=== PATIENT | male | born 1960 | race Caucasian/White ===

== ENCOUNTER 2024-01-20 13:48 | Emergency (ER) | payer BC, SELFPAY ==
[2024-01-20 13:51] VITALS: BP 163/83
[2024-01-20 14:45] VITALS: BMI 28.3
[2024-01-20 14:58] LABS: Urine Albumin Negative (Neg - Trace); Urine Bilirubin Negative (Negative); Urine Character Clear (Clear); Urine Color Yellow; Urine Glucose 3+ (Negative); Urine Ketone Trace (Negative); Urine Leukocyte Negative (Negative); Urine Nitrite Negative (Negative); Urine Occult Blood 4+ (Negative); Urine Specific Gravity 1.025 (<1.030); Urine Urobilinogen Negative (Neg - 1+)
[2024-01-20 15:01] LABS: % Basophils 0.6 % (0-2); % Immature Granulocytes 0.4 % (0-0.5); % Lymphocytes 13.8 % (20.5-51.1); % Monocytes 5.8 % (1.7-9.3); % Neutrophils 77.4 % (42.2-75.2); Absolute Basophils 0.1 10^3/uL (0-0.2); Absolute Eosinophils 0.2 10^3/uL (0-0.7); Absolute Lymphocytes 1.3 10^3/uL (1.2-3.4); Absolute Monocytes 0.6 10^3/uL (0.1-0.6); Absolute Neutrophils 7.5 10^3/uL (1.4-6.5); Hematocrit 40.6 % (39.0-52.0); Hemoglobin 15.1 g/dL (13.0-18.0); Mean Corp Hgb Conc. 37.2 g/dL (33.0-37.0); Mean Corpuscular Hgb 32.8 pg (27.0-31.0); Mean Corpuscular Volume 88.1 fL (80.0-94.0); Mean Platelet Volume 9.2 fL (7.4-10.4); Nucleated Red Blood Cells % 0 % (-); Platelet Count 199 10^3/uL (130-400); Red Blood Cell Count 4.61 10^6/uL (4.70-6.10); Red Cell Dist. Width 12.1 % (11.5-14.5); White Blood Cell Count 9.6 10^3/uL (4.8-10.8)
[2024-01-20 15:11] LABS: ALT (SGPT) 24 U/L (0-50); AST (SGOT) 27 U/L (17-59); Albumin 4.2 g/dl (3.5-5.0); Alkaline Phosphatase 59 U/L (38-126); Blood Urea Nitrogen 22 mg/dl (9-20); Calcium 9.4 mg/dl (8.4-10.2); Carbon Dioxide 25 mmol/L (22-30); Chloride 103 mmol/L (98-107); Estimated Creatinine Clearance 86 ml/min; Glucose 236 mg/dl (70-99); Potassium 4.3 mmol/L (3.5-5.1); Sodium 136 mmol/L (135-145); Total Bilirubin 0.8 mg/dl (0.2-1.3); eGFR > 60.00
[2024-01-20 15:16] LABS: Urine Mucus Few
[2024-01-20 15:17] LABS: Urine Bacteria Few (Negative); Urine Squamous Cell 0-2 /LPF (Few)
[2024-01-20 15:18] LABS: Urine Red Blood Cell 30-40 /HPF (0-2); Urine White Cell 0-2 /HPF (0-5)
[2024-01-20 18:15] VITALS: BP 145/80
--- NOTE | 2024-01-20 18:29 | ED.GENMED ---
History of Present Illness
General
Chief Complaint: Flank Pain
Source: patient
Exam Limitations: none
Time Seen by Provider: 01/20/24 14:09
Nursing documentation reviewed up to this point in time: agreed with
Travel History
Have you had any contact with someone who has COVID-19?: No
Do you have any symptoms of coronavirus? Fever > 100 degrees, chills, cough, shortness of breath, sore throat, loss of taste or smell, muscle aches, or headache?: No
History of Present Illness
History of Present Illness:
63-year-old male with past medical history of NIDDM presenting to the emergency department today with concerns left-sided flank discomfort intermittently over the past 3 days no associated urinary symptoms no nausea vomiting no fevers feels similar
to previous episode of kidney stones.
Past History
Past History
ED Past Medical History: NIDDM
ED Past Surgical History: None
Social History
Tobacco: Non-smoker
Alcohol: None
Drug: None
Personal:
Living: with family
Employment: Employed
Review of Systems
Review of Systems
Allergies reviewed?: Yes
All Other Systems: ROS reviewed and negative except as documented in HPI and ROS
Phy Exam
Physical Exam
Physical Exam:
GENERAL: Alert , in no apparent distress
EYE: pupils equal and reactive
NECK: Supple, no significant adenopathy.
ENT: o/p clr, mmm.
CARDIAC: Regular rate and rhythm .
LUNGS: Clear breath sounds bilaterally, no acute respiratory distress, no wheezes/rales/rhonchi
ABDOMEN: No CVA tenderness soft, without focal tenderness, no r/g, no cvat
NEUROLOGICAL: Alert and oriented, no focal neuro deficits
SKIN: Warm and dry, skin intact.
MUSCULOSKELETAL: No edema, well perfused.
PSYCH: Normal and appropriate interaction.
Course
Orders/Labs/Results
Orders:
Orders
01/20/24 14:48
Complete Blood Count/With Diff Urgent
Comprehensive Metabolic Panel Urgent
Urinalysis Reflex To Culture Urgent
Date Specimen was Collected: 01/20/24
Time Specimen was Collected: 14:40
Urine Microscopic Reflex Cult Urgent
01/20/24 16:02
CT Abd/pel Without Iv Or Oral Urgent
Comment:
Reason For Exam: l flank pain
Abnormal Lab Results
01/20/24
14:48
RBC 4.61 L 10^6/uL
(4.70-6.10)
MCH 32.8 H pg
(27.0-31.0)
MCHC 37.2 H g/dL
(33.0-37.0)
Absolute Neuts (auto) 7.5 H 10^3/uL
(1.4-6.5)
Neutrophils % 77.4 H %
(42.2-75.2)
Lymphocytes % 13.8 L %
(20.5-51.1)
BUN 22 H mg/dl
(9-20)
Glucose 236 H mg/dl
(70-99)
Urine Ketones Trace A
(Negative)
Ur Occult Blood Reflex 4+ A
(Negative)
Urine RBC 30-40 A /HPF
(0-2)
Urine Bacteria (Reflex) Few A
(Negative)
Urine Glucose 3+ A
(Negative)
01/20/24 14:48
01/20/24 14:48
Vital Signs
Initial and Last Documented VS:
Initial Vital Signs
Temp Pulse Resp BP Pulse Ox
97.7 F 64 18 163/83 98
01/20/24 13:51 01/20/24 13:51 01/20/24 13:51 01/20/24 13:51 01/20/24 13:51
Last Documented Vital Signs
Temp Pulse Resp BP Pulse Ox
97.7 F 60 18 145/80 99
01/20/24 13:51 01/20/24 18:15 01/20/24 18:15 01/20/24 18:15 01/20/24 18:15
MDM/Problems Addressed
MDM/Problems Addressed:
63-year-old male presenting to the emergency department today with concerns of left leg pain intermittently over the past few days. Feels similar to previous kidney stones. Upon arrival blood pressure elevated but otherwise vital signs are normal
afebrile no white count normal renal function sugar slightly elevated patient was made aware otherwise urine showing blood but no signs of infection. CT scan obtained showing a 4 mm stone consistent with patient's symptoms. Plan for outpatient
treatment and close urology follow-up. Return precautions given.
*Critical Care Note
Total Time (30-74mins, 75-104mins- exclusive of procedures): Not Applicable
ED Attending Note
-
Portions of this chart may have been created with voice recognition software.� Occasional wrong word or��sound alike� substitutions may have occurred due to the inherent limitations of voice recognition software.
Discharge Plan
Departure
Patient Disposition: Home (Routine Discharge)
Date of Disposition: 01/20/24
Time of Disposition: 18:31
Patient with high blood pressure during this ER visit?: No
Condition: Good
Covid-19: Not Applicable
Discharge Problem:
Kidney stone
Instructions: Kidney Stones (DC), How to Strain Your Urine
Prescriptions:
New
tamsulosin [Flomax] 0.4 mg capsule
0.4 mg PO HS Qty: 14 0RF
No Action
metformin 500 MG tablet
500 mg PO BID
pioglitazone 45 MG tablet
45 mg PO DAILY
simvastatin 40 MG tablet
40 mg PO DAILY
multivitamin [Daily Multiple] 1 EACH tablet
1 ea PO DAILY
aspirin 162 MG tablet
162 mg PO DAILY
calcium carbonate [Calcium 500] 500 MG tablet,chewable
500 mg PO DAILY
hydrocodone-acetaminophen [Vicodin] 1 EACH tablet
1 ea PO Q4HPRN PRN (Reason: pain) Qty: 15 0RF
Referrals:
Brian Maravilla MD [Family Provider] -
Baldomero Bone MD [Active] - Follow up in 2-3 days
Activity Restrictions/Additional Instructions:
You came to the emergency department today with concerns of flank pain. You are found to have a 4 mm stone. Please take the flomax once daily. Please stay very hydrated. For discomfort take 600 mg of ibuprofen every 6 hours. Return to the
emergency department any worsening, new or concerning symptoms.
Interventions
Interventions:
*Risk Screen - Suicide Last Done: 01/20/24 14:45
*General Assessment Last Done: 01/20/24 13:51
*Neglect/Abuse Screening Last Done: 01/20/24 14:45
*ED COVID-19 Vaccine History Last Done: 01/20/24 13:51
JB-Qgzwad-Gtjhcqfivl Assessment Last Done: 01/20/24 14:45
ED-Male Genitourinary Assessment Last Done: 01/20/24 14:45
== END 2024-01-20 18:39 | disposition home or self-care (01) ==
LOC: EMR 13:48
PROVIDERS: Emergency Medicine; EMERGENCY PHYSICIAN Emergency Medicine; FAMILY PHYSICIAN Family Medicine
DX: N13.2 Hydronephrosis with renal and ureteral calculous obstruction (principal)
CPT/HCPCS: 99284; 74176; 80053; 81003; 81015; 85025

== ENCOUNTER 2024-04-10 11:56 | Emergency (ER) | payer BC, SELFPAY ==
[2024-04-10 12:15] VITALS: BP 172/80
[2024-04-10 12:36] LABS: Urine Albumin Negative (Neg - Trace); Urine Bilirubin Negative (Negative); Urine Character Clear (Clear); Urine Color Yellow; Urine Glucose 3+ (Negative); Urine Ketone Trace (Negative); Urine Leukocyte Negative (Negative); Urine Nitrite Negative (Negative); Urine Occult Blood Negative (Negative); Urine Urobilinogen Negative (Neg - 1+)
== END 2024-04-10 12:15 ==
LOC: EMR 11:56
PROVIDERS: Emergency Medicine
DX: M54.9 Dorsalgia, unspecified (principal); R10.32 Left lower quadrant pain; Z53.21 Procedure and treatment not carried out due to patient leaving prior to being seen by health care provider
CPT/HCPCS: 81003

== ENCOUNTER 2024-04-12 01:42 | Emergency (ER) | payer BC, SELFPAY ==
[2024-04-12 01:49] VITALS: BP 134/84
[2024-04-12 02:04] LABS: Urine Albumin Negative (Neg - Trace); Urine Bilirubin Negative (Negative); Urine Character Clear (Clear); Urine Color Yellow; Urine Glucose 1+ (Negative); Urine Ketone Negative (Negative); Urine Leukocyte Negative (Negative); Urine Nitrite Negative (Negative); Urine Occult Blood 1+ (Negative); Urine Specific Gravity 1.015 (<1.030); Urine Urobilinogen Negative (Neg - 1+)
--- NOTE | 2024-04-12 02:29 | ED.GENMED ---
History of Present Illness
<REFUGIO Alex - Last Filed: 04/12/24 04:47>
General
Chief Complaint: Flank Pain
Source: patient and records
Exam Limitations: none
Time Seen by Provider: 04/12/24 02:16
Travel History
Have you had any contact with someone who has COVID-19?: No
Do you have any symptoms of coronavirus? Fever > 100 degrees, chills, cough, shortness of breath, sore throat, loss of taste or smell, muscle aches, or headache?: No
History of Present Illness
History of Present Illness:
63 year old male with hx of NIDDM, kidney stones who presents with L flank pain x 1 day. Pt had sudden onset of sharp L flank yesterday that has been waxing and waning. He also reports intermittent LLQ discomfort. Denies fevers/chills, nausea,
vomiting, dysuria, hematuria. He has been taking Ibuprofen 200 mg for his pain with moderate relief, last dose was at around 2200 . Pt was seen here on 01/20/[address] showed 4 mm stone to the L kidney. He was discharged with
outpatient follow up. States he took the course of Flomax and 4-5 days after discharge felt like he passed the stone. He did not follow up with urology as he thought he passed the stone. He did follow up with PCP.
Past History
<REFUGIO Alex - Last Filed: 04/12/24 04:47>
Past History
ED Past Medical History: NIDDM
ED Past Surgical History: None
Social History
Tobacco: Non-smoker
Alcohol: None
Drug: None
Personal:
Living: with family
Employment: Employed
Review of Systems
<REFUGIO Alex - Last Filed: 04/12/24 04:47>
Review of Systems
Allergies reviewed?: Yes
All Other Systems: ROS reviewed and negative except as documented in HPI and ROS
Constitutional: Reports no symptoms
EENT: Reports no symptoms
Respiratory: Reports no symptoms
Cardiac: Reports no symptoms
ABD/GI: Reports other (L flank pain, LLQ pain)
: Reports no symptoms
Musculoskeletal: Reports no symptoms
Skin: Reports no symptoms
Neurological: Reports no symptoms
Endocrine: Reports no symptoms
Hematologic/Lymphatic: Reports no symptoms
Psychiatric: Reports no symptoms
Phy Exam
<REFUGIO Alex - Last Filed: 04/12/24 04:47>
General Physical Exam
General Presentation: well appearing and no apparent distress
General age: appears stated age
General Skin: warm
General Habitus: normal
General Mental: alert
General Hydration: appears well hydrated
Cardiovascular Exam
Cardiovascular Exam: regular rate/rhythm, no edema, no gallop and no murmur
Pulmonary Exam
Pulmonary Exam: lungs clear, no respiratory distress, no rales, no crackles, no rhonchi, no wheezing and no cough
Gastrointestinal Exam
Gastrointestinal Exam: non tender, soft, no pulsatile mass, non distended and cva tenderness (left)
Skin Exam
Skin Exam: normal color and warm/dry
Psychiatric Exam
Psychiatric Exam: normal mood/affect
Course
<REFUGIO Alex - Last Filed: 04/12/24 04:47>
Orders/Labs/Results
Orders:
Orders
04/12/24 01:58
Urinalysis Reflex To Culture Urgent
Date Specimen was Collected: 04/12/24
Time Specimen was Collected: 01:54
Urine Microscopic Reflex Cult Urgent
04/12/24 02:46
CT Abd/pel Without Iv Or Oral Stat
Comment:
Reason For Exam: l flank pain, hx stones
04/12/24 03:03
Basic Metabolic Panel Urgent
Complete Blood Count/No Diff Urgent
04/12/24 03:34
Ketorolac [Toradol] 15 mg IM NOW STA
04/12/24 03:37
Tamsulosin [Flomax] 0.4 mg PO NOW STA
Abnormal Lab Results
04/12/24 04/12/24
01:58 03:03
RBC 4.41 L 10^6/uL
(4.70-6.10)
MCH 33.3 H pg
(27.0-31.0)
MCHC 37.3 H g/dL
(33.0-37.0)
Carbon Dioxide 21 L mmol/L
(22-30)
BUN 23 H mg/dl
(9-20)
Glucose 158 H mg/dl
(70-99)
Ur Occult Blood Reflex 1+ A
(Negative)
Urine Glucose 1+ A
(Negative)
04/12/24 03:03
04/12/24 03:03
Vital Signs
Initial and Last Documented VS:
Initial Vital Signs
Temp Pulse Resp BP Pulse Ox
98.7 F 63 16 134/84 99
04/12/24 01:49 04/12/24 01:49 04/12/24 01:49 04/12/24 01:49 04/12/24 01:49
Last Documented Vital Signs
Temp Pulse Resp BP Pulse Ox
98.7 F 63 16 125/71 99
04/12/24 01:49 04/12/24 01:49 04/12/24 01:49 04/12/24 03:00 04/12/24 01:49
<Carlita Mendiola MD - Last Filed: 04/12/24 04:30>
Orders/Labs/Results
Orders:
Orders
04/12/24 01:58
Urinalysis Reflex To Culture Urgent
Date Specimen was Collected: 04/12/24
Time Specimen was Collected: 01:54
Urine Microscopic Reflex Cult Urgent
04/12/24 02:46
CT Abd/pel Without Iv Or Oral Stat
Comment:
Reason For Exam: l flank pain, hx stones
04/12/24 03:03
Basic Metabolic Panel Urgent
Complete Blood Count/No Diff Urgent
04/12/24 03:34
Ketorolac [Toradol] 15 mg IM NOW STA
04/12/24 03:37
Tamsulosin [Flomax] 0.4 mg PO NOW STA
Abnormal Lab Results
04/12/24 04/12/24
01:58 03:03
RBC 4.41 L 10^6/uL
(4.70-6.10)
MCH 33.3 H pg
(27.0-31.0)
MCHC 37.3 H g/dL
(33.0-37.0)
Carbon Dioxide 21 L mmol/L
(22-30)
BUN 23 H mg/dl
(9-20)
Glucose 158 H mg/dl
(70-99)
Ur Occult Blood Reflex 1+ A
(Negative)
Urine Glucose 1+ A
(Negative)
04/12/24 03:03
04/12/24 03:03
Vital Signs
Initial and Last Documented VS:
Initial Vital Signs
Temp Pulse Resp BP Pulse Ox
98.7 F 63 16 134/84 99
04/12/24 01:49 04/12/24 01:49 04/12/24 01:49 04/12/24 01:49 04/12/24 01:49
Last Documented Vital Signs
Temp Pulse Resp BP Pulse Ox
98.7 F 63 16 125/71 99
04/12/24 01:49 04/12/24 01:49 04/12/24 01:49 04/12/24 03:00 04/12/24 01:49
<REFUGIO Alex - Last Filed: 04/12/24 04:47>
MDM/Problems Addressed
Differential Diagnosis Includes:
L kidney stone, pyelonephritis
MDM/Problems Addressed:
63 year old male who presents with L flank pain x 1 day.
Chronic conditions affecting care: DM
<REFUGIO Alex - Last Filed: 04/12/24 04:47>
*Critical Care Note
Total Time (30-74mins, 75-104mins- exclusive of procedures): Not Applicable
ED Attending Note
<REFUGIO Alex - Last Filed: 04/12/24 04:47>
-
Portions of this chart may have been created with voice recognition software.� Occasional wrong word or��sound alike� substitutions may have occurred due to the inherent limitations of voice recognition software.
<Carlita Mendiola MD - Last Filed: 04/12/24 04:30>
ED Attending Note
Patient seen and examined by attending physician: Yes
I performed the substantive portion of visit, reviewed & personally made and approve the management plan that is documented in note by myself or CHRISTIANO.: Yes
ED Attending Note:
63-year-old male complains of left flank pain' occasionally radiates to left upper quadrant since yesterday. He had an exacerbation of the pain just prior to coming here, now rates the pain as 4 out of 10. He denies vomiting, nausea, fever,
dysuria, urgency, frequency, or other complaints. Bowel movements are normal. He describes the symptoms as very similar to his prior events of kidney stone in January. On exam, GENERAL: Alert , in no apparent distress
EYE: pupils equal and reactive
NECK: Supple, no significant adenopathy.
ENT: o/p clr, mmm.
CARDIAC: Regular rate and rhythm .
LUNGS: Clear breath sounds bilaterally, no acute respiratory distress, no wheezes/rales/rhonchi
ABDOMEN: Soft, without focal tenderness, no r/g, no cvat
NEUROLOGICAL: Alert and oriented, no focal neuro deficits
SKIN: Warm and dry, skin intact.
MUSCULOSKELETAL: No edema, well perfused.
PSYCH: Normal and appropriate interaction.
Patient presents to the Emergency Department with ___left flank pain
Number and Complexity of Problems Addressed at the Encounter
� Chronic conditions affecting care:
� Acute Exacerbation and/or Progression of Chronic Illness:
� Differential Diagnosis includes: But not limited to kidney stone, pyelonephritis, muscular strain, etc.
Amount and/or Complexity of Data to be Reviewed and Analyzed
� I performed an independent evaluation of and my interpretation is:
EKG:
CT: Patient report 'moderate left hydro ureteral nephrosis secondary to a 4 mm stone lodged in the distal left ureter, compatible with obstructive uropathy. Correlate with urinalysis to assess for superimposed infection. No
cholecystitis or pancreatitis. Constipation without bowel obstruction. Few loops of small bowel demonstrate fecalized internal contents suggesting delayed transit/ileus.
Xrays:
Laboratory Studies: Urine demonstrates blood but does not insist suggest infection, creatinine normal
Other:
� Review of other/old records reveals:
� Clinical information was obtained by an independent historian:
� Prescriptions/Medications Considered but not given:
� Further testing considered but not performed:
Risk of Complications and/or Morbidity or Mortality of Patient Management
� Social determinants of health affecting care:
� Discussion with other providers (PCP, Hospitalists, Consultants, etc):
� Escalation of care including admission/observation vs risk of discharge considered: 4:21 AM pain well-managed. Discussed with patient importance of urological follow-up and reasons to return the emergency department. Will
discharge with strainer, specimen cup, prescription for pain and Flomax. Patient does not exhibit signs or symptoms to suggest superimposed infection.
Discharge Plan
Departure
Patient Disposition: Home (Routine Discharge)
Date of Disposition: 04/12/24
Time of Disposition: 04:22
Patient with high blood pressure during this ER visit?: Yes
Condition: Good
Discharge Problem:
Kidney stone
Instructions: Kidney Stones (DC), How to Strain Your Urine, BLOOD PRESSURE, Narcotic Pain Medication
Prescriptions:
New
tamsulosin [Flomax] 0.4 mg capsule
0.4 mg PO DAILY Qty: 30 0RF
ondansetron HCl 4 mg tablet
4 mg PO Q8H PRN (Reason: nausea and vomiting) Qty: 7 0RF
oxycodone-acetaminophen [Percocet] 5-325 mg tablet
1 tab PO Q4HPRN PRN (Reason: pain) Qty: 11 0RF
No Action
metformin 500 MG tablet
500 mg PO BID
pioglitazone 45 MG tablet
45 mg PO DAILY
simvastatin 40 MG tablet
40 mg PO DAILY
multivitamin [Daily Multiple] 1 EACH tablet
1 ea PO DAILY
aspirin 162 MG tablet
162 mg PO DAILY
calcium carbonate [Calcium 500] 500 MG tablet,chewable
500 mg PO DAILY
hydrocodone-acetaminophen [Vicodin] 1 EACH tablet
1 ea PO Q4HPRN PRN (Reason: pain) Qty: 15 0RF
tamsulosin [Flomax] 0.4 mg capsule
0.4 mg PO HS Qty: 14 0RF
Referrals:
Brian Maravilla MD [Family Provider] -
Rob Hawthorne Jr., MD [Active] - Follow up in 1 week
Activity Restrictions/Additional Instructions:
IF YOU DEVELOP INCREASING/NEW/PERSISTENT PAIN, FEVER, VOMITING, TROUBLE URINATING, PAIN WITH URINATING, GET WORSE, DO NOT GET BETTER, OR OTHER WORRISOME SIGNS, GO TO THE ER IMMEDIATELY!
Interventions
Interventions:
*Risk Screen - Suicide Last Done: 04/12/24 01:49
*General Assessment Last Done: 04/12/24 01:49
*Neglect/Abuse Screening Last Done: 04/12/24 01:49
ED- Fall Risk Assessment Last Done: 04/12/24 02:30
*ED COVID-19 Vaccine History Last Done: 04/12/24 02:30
LA-Jecosl-Toaibaqxst Assessment Last Done: 04/12/24 02:30
ED-Male Genitourinary Assessment Last Done: 04/12/24 02:30
Discharge Date and Time
Print Language: GREENLANDIC
[2024-04-12 02:30] VITALS: BMI 27.6
[2024-04-12 02:32] VITALS: BP 126/73
[2024-04-12 03:00] VITALS: BP 125/71
[2024-04-12 03:12] LABS: Hematocrit 39.4 % (39.0-52.0); Hemoglobin 14.7 g/dL (13.0-18.0); Mean Corp Hgb Conc. 37.3 g/dL (33.0-37.0); Mean Corpuscular Hgb 33.3 pg (27.0-31.0); Mean Corpuscular Volume 89.3 fL (80.0-94.0); Mean Platelet Volume 9.2 fL (7.4-10.4); Platelet Count 190 10^3/uL (130-400); Red Blood Cell Count 4.41 10^6/uL (4.70-6.10)
[2024-04-12 03:41] LABS: Blood Urea Nitrogen 23 mg/dl (9-20); Calcium 9.4 mg/dl (8.4-10.2); Carbon Dioxide 21 mmol/L (22-30); Chloride 105 mmol/L (98-107); Estimated Creatinine Clearance 66 ml/min; Glucose 158 mg/dl (70-99); Potassium 4.4 mmol/L (3.5-5.1); Sodium 136 mmol/L (135-145); eGFR > 60.00
[2024-04-12] MEDS: TORADOL 15 MG IM (03:41)
[2024-04-12] MEDS: FLOMAX 0.400000000000000022 MG PO (03:41)
[2024-04-12 05:02] LABS: Urine Bacteria Few (Negative); Urine White Cell 0-2 /HPF (0-5)
== END 2024-04-12 04:59 | disposition home or self-care (01) ==
LOC: EMR 01:42
PROVIDERS: EMERGENCY PHYSICIAN Emergency Medicine; FAMILY PHYSICIAN Family Medicine
DX: N13.2 Hydronephrosis with renal and ureteral calculous obstruction (principal); E11.9 Type 2 diabetes mellitus without complications; Z87.442 Personal history of urinary calculi; Z79.82 Long term (current) use of aspirin; Z88.5 Allergy status to narcotic agent
CPT/HCPCS: 99284; 96372; 51798; 74176; 80048; 81003; 81015; 85027

== ENCOUNTER 2025-04-17 03:30 | Emergency (ER) | payer BC, SELFPAY ==
[2025-04-17 03:43] VITALS: BP 166/97
[2025-04-17 03:46] VITALS: BP 152/95
[2025-04-17 04:00] VITALS: BP 151/89
[2025-04-17 04:02] VITALS: BMI 29.1
[2025-04-17 04:06] LABS: % Basophils 0.8 % (0-2); % Eosinophils 5.8 % (0-6); % Immature Granulocytes 0.5 % (0-0.5); % Lymphocytes 39.9 % (20.5-51.1); % Monocytes 9.7 % (1.7-9.3); % Neutrophils 43.3 % (42.2-75.2); Absolute Basophils 0.1 10^3/uL (0-0.2); Absolute Eosinophils 0.4 10^3/uL (0-0.7); Absolute Lymphocytes 2.6 10^3/uL (1.2-3.4); Absolute Monocytes 0.6 10^3/uL (0.1-0.6); Absolute Neutrophils 2.9 10^3/uL (1.4-6.5); Hematocrit 43.3 % (39.0-52.0); Hemoglobin 16.1 g/dL (13.0-18.0); Mean Corp Hgb Conc. 37.2 g/dL (33.0-37.0); Mean Corpuscular Hgb 32.9 pg (27.0-31.0); Mean Corpuscular Volume 88.4 fL (80.0-94.0); Mean Platelet Volume 9.4 fL (7.4-10.4); Nucleated Red Blood Cells % 0 % (-); Platelet Count 206 10^3/uL (130-400); Red Cell Dist. Width 11.9 % (11.5-14.5); White Blood Cell Count 6.6 10^3/uL (4.8-10.8)
[2025-04-17 04:30] LABS: ALT (SGPT) 23 U/L (0-50); AST (SGOT) 26 U/L (17-59); Albumin 4.5 g/dl (3.5-5.0); Alkaline Phosphatase 72 U/L (38-126); Blood Urea Nitrogen 21 mg/dl (9-20); Calcium 9.9 mg/dl (8.4-10.2); Carbon Dioxide 25 mmol/L (22-30); Chloride 108 mmol/L (98-107); Estimated Creatinine Clearance 91 ml/min; Glucose 222 mg/dl (70-99); Potassium 4.5 mmol/L (3.5-5.1); Sodium 141 mmol/L (135-145); Total Bilirubin 0.8 mg/dl (0.2-1.3); Total Protein 7.6 g/dl (6.3-8.2); eGFR > 60.00
[2025-04-17] MEDS: MAALOX 30 PO (04:32)
[2025-04-17 04:50] LABS: Troponin I < 0.012 ng/ml
[2025-04-17 05:00] VITALS: BP 131/81
--- NOTE | 2025-04-17 05:00 | ED.GENMED ---
History of Present Illness
General
Chief Complaint: Cardiac Symptoms
Source: patient
Exam Limitations: none
Time Seen by Provider: 04/17/25 03:56
Nursing documentation reviewed up to this point in time: agreed with
History of Present Illness
History of Present Illness:
This is a 64-year-old gentleman with history of bzf-fbumzmi-xwcrrwecf diabetes, hyperlipidemia who states he awoke approximately 1 hour prior to arrival initially with bilateral leg/calf cramps associated with substernal chest pain which he
describes as heartburn as well as profuse diaphoresis. He was able to get up and walk around with resolution of leg cramps but continued with substernal chest pain, diaphoresis that was unrelieved after taking 4 chewable Tums as well as unrelieved
after taking a shower. Substernal chest pain nonradiating, denies back pain or neck pain, no weakness nor numbness nor palpitations but admits to overall not feeling well. No history of similar episodes in the past.
Since arrival to the ED admits that chest pain has improved but has not completely resolved. No further leg cramps. He now notes that he is somewhat gassy, passing moderate amount of flatus as well as intermittent burping. He denies abdominal
pain.
His daily medications include metformin, glipizide, simvastatin. He also takes 2 regular strength aspirin twice daily in the morning and also at nighttime. He has been doing this for a number of years.
No prior history of CAD, hypertension nor family history of CAD.
Patient reports eating cereal for dinner last night.
Past History
Past History
ED Past Medical History: Hypercholesterolemia, NIDDM and Other (Kidney stone)
ED Past Surgical History: None
Social History
Tobacco: Non-smoker
Alcohol: None
Drug: None
Personal:
Living: with family
Employment: Retired
Family History
Family History: Negative CAD
Phy Exam
Physical Exam
Physical Exam:
GENERAL: 64-year-old gentleman appears his stated age, awake and alert, pleasant, appears in no acute distress.
EYE: anicteric
NECK: Supple, nontender, no meningismus, no significant adenopathy.
ENT: oral mucosa is moist. No rhinorrhea.
CARDIAC: Regular rate and rhythm. no murmur. No chest wall tenderness.
LUNGS: Clear breath sounds bilaterally, no acute respiratory distress, no wheezes/rales/rhonchi
ABDOMEN: Rotund, soft, nondistended, without focal tenderness, no r/g, no cvat. normoactive BS.
NEUROLOGICAL: Alert and oriented x3, no focal neuro deficits.
SKIN: Warm and dry, normal color, skin intact. No rash.
MUSCULOSKELETAL: No C/C/E. peripheral pulses are full and equal b/l. No palpable tenderness.
PSYCH: Normal and appropriate interaction.
Scores
Heart Score for Chest Pain Patients
STEMI patient?: No
History: Slightly or Non-Suspicious
ECG: Normal
Age: >/= 65 years
Risk Factors: 1 or 2 Risk Factors
Troponin: </= Normal Limit
Heart Score for Chest Pain Patients: 3
Heart Score Risk: 2.5% MACE over next 6 weeks
Course
Orders/Labs/Results
Orders:
Orders
04/17/25 03:31
EKG [Electrocardiogram (*1)] Urgent
Reason for Study: Chest Pain
EKG- Treatment ONCE
04/17/25 03:55
Cardiac Monitoring- Treatment ONCE
IV Insert/Care/Rem.- Treatment PRN
Pulse Ox/spot Check [RESP] Urgent
Quantity: 1
Special Instructions: ON ROOM AIR
04/17/25 03:57
Complete Blood Count/With Diff Urgent
Comprehensive Metabolic Panel Urgent
Troponin I Urgent
04/17/25 04:15
Mag Hydrox/Al Hydrox/Simeth [Maalox] 30 ml Phenobarb/Hyoscy/Atropine/Scop [] 10 ml Viscous Lidocaine 2% [Xylocaine Viscous Cup] 10 ml PO NOW
04/17/25 04:28
Mag Hydrox/Al Hydrox/Simeth [Maalox] 30 ml .ROUTE .STK-MED ONE
Phenobarb/Hyoscy/Atropine/Scop [] 10 ml .ROUTE .STK-MED ONE
04/17/25 04:29
Viscous Lidocaine 2% [Xylocaine Viscous Cup] 15 ml .ROUTE .STK-MED ONE
04/17/25 05:02
CR Chest - 2 Views Urgent
Comment:
Reason For Exam: acute CP
04/17/25 05:07
Troponin I Urgent
Abnormal Lab Results
04/17/25
03:57
MCH 32.9 H pg
(27.0-31.0)
MCHC 37.2 H g/dL
(33.0-37.0)
Monocytes % 9.7 H %
(1.7-9.3)
Chloride 108 H mmol/L
(98-107)
BUN 21 H mg/dl
(9-20)
Glucose 222 H mg/dl
(70-99)
04/17/25 03:57
04/17/25 03:57
Vital Signs
Initial and Last Documented VS:
Initial Vital Signs
Temp Pulse BP Pulse Ox
98.0 F 66 166/97 98
04/17/25 03:43 04/17/25 03:43 04/17/25 03:43 04/17/25 03:43
Last Documented Vital Signs
Temp Pulse Resp BP Pulse Ox
98.0 F 62 19 151/89 92
04/17/25 03:43 04/17/25 04:00 04/17/25 04:00 04/17/25 04:00 04/17/25 04:00
MDM/Problems Addressed
Differential Diagnosis Includes:
Concern for ACS, GERD. No complaints of back pain nor flank pain, acute dissection, renal colic unlikely.
EKG is unremarkable, unchanged from previous 2022.
Will check labs including troponin. Will check chest x-ray. Will trial a GI cocktail.
Chronic conditions affecting care: DM
*Radiology
Radiology exam reviewed: preliminary read by ED provider (Chest x-ray is unremarkable.)
*Pulse Oximetry
Patient hypoxic: no (98% on room air)
*EKG
Interpreted by ED Provider?: Yes
Interpretation: normal
Comparison EKG: no changes (Unchanged from previous 2022 save for heart rate has decreased from 91 to now 62)
Rate: normal
Rhythm: sinus
[place]: normal axis
Interval: normal interval
QRS Pattern: normal QRS
Ischemia: no ischemia
*Payroll Coordinator Interpretation
Rate: normal
Interpretation: normal
Rhythm: sinus
*Critical Care Note
Total Time (30-74mins, 75-104mins- exclusive of procedures): Not Applicable
Update Note
Update Note:
Thus far labs are unremarkable. Mildly elevated random glucose of 222. Troponin is negative.
Patient feeling improved after GI cocktail.
Will continue to observe and plan to repeat troponin.
06:10
Patient remains chest pain-free and comfortable after GI cocktail.
Repeat troponin remains flat.
I suspect acid reflux as cause for chest discomfort.
Patient does have risk factors for CAD including diabetes, hyperlipidemia thus will refer to our chest pain hotline.
Recommend avoidance of eating or drinking at least 4 hours prior to bed.
Return precautions discussed.
ED Attending Note
-
Portions of this chart may have been created with voice recognition software.� Occasional wrong word or��sound alike� substitutions may have occurred due to the inherent limitations of voice recognition software.
Discharge Plan
Departure
Patient Disposition: Home (Routine Discharge)
Date of Disposition: 04/17/25
Time of Disposition: 06:15
Patient with high blood pressure during this ER visit?: Yes
Discharge Problem:
Nonspecific chest pain, acute GERD
Instructions: Acid reflux and GERD in adults, Chest Pain DCA Follow Up, BLOOD PRESSURE
Prescriptions:
No Action
metformin 500 MG tablet
500 mg PO BID
pioglitazone 45 MG tablet
45 mg PO DAILY
simvastatin 40 MG tablet
40 mg PO DAILY
multivitamin [Daily Multiple] 1 EACH tablet
1 ea PO DAILY
aspirin 162 MG tablet
162 mg PO DAILY
calcium carbonate [Calcium 500] 500 MG tablet,chewable
500 mg PO DAILY
hydrocodone-acetaminophen [Vicodin] 1 EACH tablet
1 ea PO Q4HPRN PRN (Reason: pain) Qty: 15 0RF
tamsulosin [Flomax] 0.4 mg capsule
0.4 mg PO HS Qty: 14 0RF
tamsulosin [Flomax] 0.4 mg capsule
0.4 mg PO DAILY Qty: 30 0RF
ondansetron HCl 4 mg tablet
4 mg PO Q8H PRN (Reason: nausea and vomiting) Qty: 7 0RF
oxycodone-acetaminophen [Percocet] 5-325 mg tablet
1 tab PO Q4HPRN PRN (Reason: pain) Qty: 11 0RF
Referrals:
UNKNOWN - PT DOES,NOT KNOW [Family Provider]
Interventions
Interventions:
*Risk Screen - Suicide Last Done: 04/17/25 03:33
ED- Pulmonary Assessment Last Done: 04/17/25 04:02
ED- Cardiac Assessment Last Done: 04/17/25 04:02
Discharge Date and Time
Print Language: NEPALESE
[2025-04-17 05:58] LABS: Troponin I < 0.012 ng/ml
== END 2025-04-17 06:35 | disposition home or self-care (01) ==
LOC: EMR 03:30
PROVIDERS: EMERGENCY PHYSICIAN Emergency Medicine
DX: R07.9 Chest pain, unspecified (principal); K21.9 Gastro-esophageal reflux disease without esophagitis; E78.00 Pure hypercholesterolemia, unspecified; E11.9 Type 2 diabetes mellitus without complications; Z79.899 Other long term (current) drug therapy
CPT/HCPCS: 99285; 71046; 80053; 84484; 85025; 93005